=== PATIENT | female | born 1995 | race African-American/Black ===

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

== ENCOUNTER 2018-10-27 19:57 | Inpatient (IN) ==
[2018-10-27] MEDS ORDERED: TYLENOL PO PRN (20:02)
[2018-10-27] MEDS ORDERED: PEPCID PO ONE (20:02)
[2018-10-27] MEDS ORDERED: KEFZOL 1 GM/D5W 1 GM/50 ML IVPB IV PRN (20:02)
[2018-10-27] MEDS ORDERED: PEPCID PO PRN (20:02)
[2018-10-27] MEDS ORDERED: REGLAN PO ONE (20:02)
[2018-10-27] MEDS ORDERED: ZOFRAN IV PRN (20:02)
[2018-10-27] MEDS ORDERED: PEPCID IV PRN (20:02)
[2018-10-27] MEDS ORDERED: SODIUM CHLORIDE 0.9% INJ SCH (20:15)
[2018-10-27] MEDS ORDERED: CYTOTEC VAG SCH (21:00)
[2018-10-27] MEDS: LR 1,000 ML IV SCH (21:10)
[2018-10-27 21:43] LABS: BASO# 0.02 X1000 (0.0-0.2); BASO% 0.2 % (0.0-0.8); EOS# 0.16 X1000 (0.0-0.7); EOS% 1.6 % (0.0-10.0); HEMATOCRIT 37.3 % (37.0-47.0); HEMOGLOBIN 12.6 g/dL (12.0-16.0); IMM GRAN# 0.04 X1000 (0.0-0.04); IMM GRAN% 0.4 % (0.0-0.5); LYMPH# 2.21 X1000 (1.2-3.4); LYMPH% 21.9 % (20.5-51.1); MCHC 33.8 g/dL (33-37); MCV 76.9 FL (81-99); MONO# 0.85 X1000 (0.11-0.59); MONO% 8.4 % (1.7-9.3); MPV 11.7 FL (7.4-10.4); NEUT# 6.83 X1000 (1.4-6.5); NEUT% 67.5 % (42.2-75.2); PLT 299 X1000 (130-400); RBC 4.85 XMIL (4.2-5.4); RDW 16.5 % (11.5-14.5); WBC 10.11 X1000 (4.8-10.8)
[2018-10-27] MEDS ORDERED: BLISTEX MEDICATED BERRY LIP BALM TOP ONE (22:14)
[2018-10-27 23:03] LABS: URINE SOURCE VOIDED
[2018-10-27 23:11] LABS: BILIRUBIN URINE NEGATIVE (NEGATIVE); BLOOD URINE 3+ (NEGATIVE); CLARITY CLEAR (CLEAR); COLOR YELLOW; GLUCOSE URINE NEGATIVE (NEGATIVE); KETONE URINE TRACE mg/dL (NEGATIVE); LEUKOCYTES URINE TRACE (NEGATIVE); NITRITE URINE NEGATIVE (NEGATIVE); PROTEIN URINE TRACE mg/dL (NEGATIVE); UROBILINOGEN URINE NORMAL
[2018-10-27 23:38] LABS: UR AMPHETAMINES QUAL NONE DETECTED (NONE DETECT); UR BARBITUATES QUAL NONE DETECTED (NONE DETECT); UR BENZODIAZEPIN QUAL NONE DETECTED (NONE DETECT); UR CANNABINOIDS QUAL NONE DETECTED (NONE DETECT); UR COCAINE QUAL NONE DETECTED (NONE DETECT); UR METHADONE QUAL NONE DETECTED (NONE DETECT); UR METHAMPHETAMINE QUAL NONE DETECTED (NONE DETECT); UR OPIATES QUAL NONE DETECTED (NONE DETECT); UR OXYCODONE QUAL NONE DETECTED (NONE DETECT); UR PCP QUAL NONE DETECTED (NONE DETECT); UR PROPOXYPHENE QUAL NONE DETECTED (NONE DETECT); UR TCA QUAL NONE DETECTED (NONE DETECT)
[2018-10-28] MEDS: STADOL IV PRN ×2 (01:15→04:08)
[2018-10-28] MEDS ORDERED: CYTOTEC PO ONE (02:44)
--- NOTE | 2018-10-28 04:03 | HISTORY AND PHYSICAL ---
HISTORY OF PRESENT ILLNESS: Mrs. Mcdonald is a 23-year-old at 40 weeks and 1 day with an estimated due date of 10/26/2018 based on last menstrual period confirmed with 1st trimester ultrasound who presents for induction of labor. The patient currently without complaints. Reports good movement. Denies contractions, leakage of fluid, or vaginal bleeding. MEDICATIONS: ProAir, vitamins, valacyclovir, and Ambien. PAST MEDICAL HISTORY: Asthma and insomnia. PAST SURGICAL HISTORY: Noncontributory. None. GYNECOLOGY HISTORY: Menarche age 14. 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 OBSTETRICAL HISTORY: G1, P0. FAMILY HISTORY: Noncontributory. SOCIAL HISTORY: Denies tobacco, alcohol, or drug use. ALLERGIES: No known drug allergies. PHYSICAL EXAMINATION: VITAL SIGNS: Temperature 97.8 degrees, blood pressure 132/89, heart rate 105. Weight 272 pounds, height 5 feet 4 inches. GENERAL: No acute distress. CARDIOVASCULAR: Regular rate and rhythm. Positive S1, S2. RESPIRATORY: Clear to auscultation bilaterally. No rhonchi, rales, or wheezing. ABDOMEN: Gravid. Nontender to palpation. Fundal height 41 cm. heart rate 140 beats per minute. EXTREMITIES: No calf tenderness. One plus edema. LABORATORIES: Rubella nonimmune. GBS negative. ASSESSMENT: Mrs. Mcdonald is a 23-year-old at 40 weeks and 1 day with an estimated due date of 10/26/2018 based on last menstrual period confirmed with first trimester ultrasound who presents for induction of labor. PLAN: 1. Admit to Labor and delivery. 2. Routine labor labs. 3. Induction with 25 mcg q. 4 hours. 4. Continue with monitoring. 5. Estimated weight 8-1/2 pounds. 6. Anticipate vaginal delivery.
[2018-10-28] MEDS: LR 1,000 ML IV SCH ×3 (04:08→19:56)
[2018-10-28] MEDS ORDERED: XYLOCAINE-MPF 1% INJ PRN ×2 (04:14→15:11)
[2018-10-28] MEDS ORDERED: FENTANYL-BUPIV-NS 2 MCG-0.1% 200 ML EPIDURAL SCH (05:00)
[2018-10-28] MEDS ORDERED: NAROPIN 0.2% INJ ONE (05:00)
[2018-10-28] MEDS ORDERED: MAGNESIUM SULFATE 4 GM/S.W.I. 4 GM/100 ML IVPB IV ONE ×2 (09:32→09:34)
[2018-10-28] MEDS ORDERED: LABETALOL IV ONE ×2 (09:32→13:45)
[2018-10-28] MEDS: MAGNESIUM SULFATE 40 GM/S.W.I. 40 GM/1,000 ML IV.SOLN IV SCH (10:35)
[2018-10-28] MEDS: PITOCIN 30 UNITS/NS 30 UNIT/500 ML IV.SOLN IV SCH ×2 (10:47→14:27)
[2018-10-28] MEDS ORDERED: CYTOTEC PR ONE (13:50)
[2018-10-28] MEDS ORDERED: CYTOTEC ONE (13:54)
[2018-10-28] MEDS: MINERAL OIL TOP PRN ×3 (14:02→14:11)
[2018-10-28] MEDS ORDERED: LABETALOL ONE (14:18)
--- NOTE | 2018-10-28 15:09 | OPERATIVE NOTE ---
PROCEDURE DATE: 10/28/2018 DELIVERY NOTE: The patient progressed to complete and pushing spontaneously, vaginal delivery of a female infant weighing 7 pounds 2 ounces. Apgars 8 and 10 at 1 and 5 minutes respectively over an intact perineum. No nuchal cord was identified. The placenta was delivered intact with three- vessel cord. Cord blood sample was obtained. ESTIMATED BLOOD LOSS: 200 mL. ANESTHESIA: Epidural. COUNTS: All counts correct x2.
[2018-10-28] MEDS ORDERED: ATARAX PO PRN (15:11)
[2018-10-28] MEDS ORDERED: BENADRYL IV PRN (15:11)
[2018-10-28] MEDS ORDERED: MINERAL OIL PO PRN (15:11)
[2018-10-28] MEDS ORDERED: M-M-R II VACCINE SUBQ ONE (15:11)
[2018-10-28] MEDS ORDERED: AMBIEN PO PRN (15:11)
[2018-10-28] MEDS ORDERED: BOOSTRIX VACCINE IM ONE (15:11)
[2018-10-28] MEDS ORDERED: HYDROXYZINE IM PRN (15:11)
[2018-10-28] MEDS ORDERED: PITOCIN IM PRN (15:11)
[2018-10-28] MEDS ORDERED: BENADRYL PO PRN (15:11)
[2018-10-28] MEDS ORDERED: VENTOLIN HFA INH PRN (15:14)
[2018-10-28] MEDS ORDERED: PITOCIN 20 UNITS/NS 20 UNITS/1,000 ML IV.SOLN IV SCH (15:15)
[2018-10-28] MEDS ORDERED: VENTOLIN HFA INH SCH (15:15)
[2018-10-28] MEDS ORDERED: PITOCIN 30 UNITS/NS 30 UNIT/500 ML IV.SOLN IV SCH (15:15)
[2018-10-28] MEDS: PERCOCET-5 PO PRN ×2 (15:51→22:58)
[2018-10-28] MEDS: MOTRIN PO PRN (15:51)
[2018-10-28] MEDS: PERI MEDS (DERMOPLAST/NUPERCAINAL/TUCKS) MISC PRN (15:52)
[2018-10-29] MEDS: PERICOLACE PO SCH ×2 (00:25→22:16)
[2018-10-29] MEDS: LR 1,000 ML IV SCH ×5 (00:25→22:24)
[2018-10-29] MEDS: MOTRIN PO PRN ×3 (03:01→22:16)
[2018-10-29] MEDS: PERCOCET-5 PO PRN ×3 (03:01→20:17)
[2018-10-29 05:11] LABS: BASO# 0.02 X1000 (0.0-0.2); BASO% 0.1 % (0.0-0.8); EOS# 0.09 X1000 (0.0-0.7); EOS% 0.5 % (0.0-10.0); HEMATOCRIT 33.4 % (37.0-47.0); HEMOGLOBIN 11.1 g/dL (12.0-16.0); IMM GRAN# 0.04 X1000 (0.0-0.04); IMM GRAN% 0.2 % (0.0-0.5); LYMPH# 2.75 X1000 (1.2-3.4); LYMPH% 14.7 % (20.5-51.1); MCH 25.9 PG (27-31); MCHC 33.2 g/dL (33-37); MCV 77.9 FL (81-99); MONO# 1.19 X1000 (0.11-0.59); MONO% 6.4 % (1.7-9.3); MPV 10.9 FL (7.4-10.4); NEUT# 14.59 X1000 (1.4-6.5); NEUT% 78.1 % (42.2-75.2); PLT 252 X1000 (130-400); RBC 4.29 XMIL (4.2-5.4); RDW 16.8 % (11.5-14.5); WBC 18.68 X1000 (4.8-10.8)
[2018-10-29] MEDS: MAGNESIUM SULFATE 40 GM/S.W.I. 40 GM/1,000 ML IV.SOLN IV SCH (05:45)
--- NOTE | 2018-10-29 07:30 | OB/GYN PROGRESS NOTE ---
Progress Note OB - . OB Progress Note: Vital Signs - 24 hr 10/28/18 07:38 10/28/18 14:30 10/28/18 14:40 Temperature 97.4 F L 97.1 F L Pulse Rate 103 H 114 H Respiratory Rate 16 18 Blood Pressure 170/83 161/90 Blood Pressure [Right Arm] 162/89 O2 Sat by Pulse Oximetry 100 99 10/28/18 14:50 10/28/18 15:00 10/28/18 15:10 Temperature Pulse Rate 110 H 109 H 111 H Respiratory Rate 18 18 18 Blood Pressure Blood Pressure [Right Arm] 173/94 159/87 158/109 O2 Sat by Pulse Oximetry 99 99 99 10/28/18 15:20 10/28/18 16:20 10/28/18 19:00 Temperature Pulse Rate 105 H 112 H 103 H Respiratory Rate 16 16 18 Blood Pressure 178/77 Blood Pressure [Right Arm] 176/88 O2 Sat by Pulse Oximetry 99 98 98 10/29/18 00:05 10/29/18 04:03 10/29/18 06:11 Temperature 97.9 F 97.2 F L Pulse Rate 89 82 77 Respiratory Rate 18 16 18 Blood Pressure 123/73 135/65 128/71 Blood Pressure [Right Arm] O2 Sat by Pulse Oximetry 98 99 99 Laboratory Results - last 24 hr 10/27/18 10/29/18 12:50 05:01 WBC 18.68 H RBC 4.29 Hgb 11.1 L Hct 33.4 L MCV 77.9 L MCH 25.9 L MCHC 33.2 RDW Std Deviation 16.8 H Plt Count 252 MPV 10.9 H Immature Gran % (Auto) 0.2 Neut % (Auto) 78.1 H Lymph % (Auto) 14.7 L [place] % (Auto) 6.4 Eos % (Auto) 0.5 Baso % (Auto) 0.1 Immature Gran # (Auto) 0.04 Neut # (Auto) 14.59 H Lymph # (Auto) 2.75 [place] # (Auto) 1.19 H Eos # (Auto) 0.09 Baso # (Auto) 0.02 Blood Type O POSITIVE Antibody Screen NEGATIVE S. patient resting in bed. She is on magnesium and tolerating well, catheter in place. She is bottle feeding baby, her pain is controlled and her bleeding is light. O. HEENT: Normocephalic, atraumatic Chest: CTAB Heart: R/R/R Abdomen: soft, NT, uterus at the umbilicus Ext: no edema, SCD in place A/P 23yo s/p IVD undergoing magnesium for seizure prophylaxis. She is tolerating the MgSO4 well. Continue mag until 14:00 then transition to procarida. care.
[2018-10-29] MEDS: PRECARE PO SCH (09:12)
[2018-10-29] MEDS ORDERED: PREVNAR 13 IM ONE (11:21)
[2018-10-29] MEDS ORDERED: PNEUMOVAX 23 IM ONE (11:45)
[2018-10-29] MEDS ORDERED: ADALAT CC PO ONE (12:47)
[2018-10-29] MEDS ORDERED: EUCERIN CREAM TOP PRN (16:06)
[2018-10-30] MEDS: PERCOCET-5 PO PRN ×2 (05:36→13:46)
--- NOTE | 2018-10-30 07:24 | OB/GYN PROGRESS NOTE ---
Progress Note OB - . Patient Problems: Current Active Problems Problem Status Onset Vaginal delivery Acute Severe pre-eclampsia Acute OB Progress Note: Vital Signs - 24 hr 10/29/18 08:03 10/29/18 08:30 10/29/18 08:58 Temperature 98.4 F Pulse Rate Respiratory Rate Blood Pressure 173/92 135/72 132/82 O2 Sat by Pulse Oximetry 100 10/29/18 09:03 10/29/18 10:00 10/29/18 11:03 Temperature Pulse Rate Respiratory Rate Blood Pressure 130/75 143/76 139/67 O2 Sat by Pulse Oximetry 10/29/18 12:40 10/29/18 13:50 10/29/18 14:39 Temperature Pulse Rate Respiratory Rate Blood Pressure 133/72 132/72 119/61 O2 Sat by Pulse Oximetry 10/29/18 15:31 10/29/18 20:05 10/29/18 20:15 Temperature 97.8 F 97.6 F Pulse Rate 85 114 H Respiratory Rate 16 18 Blood Pressure 126/72 140/73 O2 Sat by Pulse Oximetry 98 98 97 10/30/18 05:40 Temperature 97.6 F Pulse Rate 93 H Respiratory Rate 18 Blood Pressure 131/60 O2 Sat by Pulse Oximetry 99 HPI: Pt seen and examined. Currently w/o complaints. Ambulating and urinating w/o difficulty. Tolerating regular diet. Denies IRIZARRY/SOB/CP/scotomata/epigastric pain/fever/chills/n/v. +bottle feeding and decreased lochia. VS: Please see above GEN: NAD CV: RRR, +S1S2 RESP: CTA b/l ABD: soft, NTTP, FF below umbilicus EXT: neg CT ASSESSMENT: 23 yo PPD#2 s/p complicated by intrapartum/ pre- eclampsia PLAN: -pain well controlled with PO pain meds -OOB to ambulation -regular diet -s/p 24 hrs of PP mag sulfate -BP well controlled on Procardia XL -Will f/u in office in 1 week for BP check -Plan for d/c home today
[2018-10-30] MEDS ORDERED: ADALAT CC PO SCH (09:00)
[2018-10-30] MEDS: PRECARE PO SCH (11:01)
[2018-10-30] MEDS: MOTRIN PO PRN (11:01)
[2018-10-30] MEDS: PERI MEDS (DERMOPLAST/NUPERCAINAL/TUCKS) MISC PRN (11:03)
[2018-10-30] MEDS ORDERED: DEPO-PROVERA IM ONE (11:35)
[2018-10-30 14:22] VITALS: BP 130/69
== END 2018-10-30 14:15 | disposition home or self-care (01) | DRG 807 ==
LOC: P.LD 19:57
PROVIDERS: ADMIT Obstetrics & Gynecology; ATTEND Obstetrics & Gynecology
CPT/HCPCS: 80104; 80301; 80305; 81003; 85025; 86592; 86850; 86900; 86901; 90707; 90715; 90732; A9270; G0431; G0434; G0477; J0150; J0595; J1050; J1055; J2405; J2590; J2795; J3475; J7120